=== PATIENT | female | born 1990 | race Caucasian/White ===

== ENCOUNTER 2016-02-19 06:55 | Emergency (ER) | payer BC ==
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
[2016-02-19 08:26] VITALS: BP 126/77
== END 2016-02-19 08:24 | disposition home or self-care (01) ==
LOC: ED 06:55
DX: S05.8X2A Other injuries of left eye and orbit, initial encounter (principal); H53.149 Visual discomfort, unspecified; L53.9 Erythematous condition, unspecified; F17.200 Nicotine dependence, unspecified, uncomplicated; W50.0XXA Accidental hit or strike by another person, initial encounter; Y93.9 Activity, unspecified; Y92.9 Unspecified place or not applicable; Y99.9 Unspecified external cause status
CPT/HCPCS: 99281